=== PATIENT | female | born 1945 | race Caucasian/White ===

== ENCOUNTER → 2022-07-27 | Outpatient (CLI) | payer MEDICARE | END | disposition home or self-care (01) | LOC: RAH 09:00 | PROVIDERS: ATTEND Internal Medicine | DX: R92.8 Other abnormal and inconclusive findings on diagnostic imaging of breast (principal); N60.09 Solitary cyst of unspecified breast | CPT/HCPCS: 77066; G0279; 77062 ==

== ENCOUNTER → 2023-08-01 | Outpatient (CLI) | payer MEDICARE | END | disposition home or self-care (01) | LOC: RAH 08:59 | PROVIDERS: ATTEND Internal Medicine | DX: R92.343 Mammographic extreme density, bilateral breasts (principal); R92.8 Other abnormal and inconclusive findings on diagnostic imaging of breast | CPT/HCPCS: 77062; 77066 ==

== ENCOUNTER → 2024-01-05 | Outpatient (CLI) | payer MEDICARE | END | disposition home or self-care (01) | LOC: RAH 09:33 | PROVIDERS: ATTEND Internal Medicine | DX: J84.10 Pulmonary fibrosis, unspecified (principal); T70.29XA Other effects of high altitude, initial encounter; M47.815 Spondylosis without myelopathy or radiculopathy, thoracolumbar region; Y92.89 Other specified places as the place of occurrence of the external cause | CPT/HCPCS: 71046 ==

== ENCOUNTER → 2024-08-09 | Outpatient (CLI) | payer MEDICARE | END | disposition home or self-care (01) | LOC: RAH 10:21 | PROVIDERS: ATTEND Obstetrics & Gynecology | DX: Z12.31 Encounter for screening mammogram for malignant neoplasm of breast (principal) | CPT/HCPCS: 77063; 77067 ==